=== PATIENT | male | born 2000 | race Caucasian/White ===

== ENCOUNTER 2023-05-14 06:03 | Emergency (ER) | payer MEDICAID, OTHER ==
[~2023-05-14] VITALS: Ht 185.4 cm; Wt 86.4 kg
[2023-05-14 08:00] VITALS: RESP 16; O2SAT 98
[2023-05-14 08:05] VITALS: BP 117/78; PULSE 68; RESP 16; TEMP 98.2; O2SAT 98
== END 2023-05-14 08:10 | disposition home or self-care (01) ==
LOC: EDBD 06:03 → ER 06:03
DX: T59.811A Toxic effect of smoke, accidental (unintentional), initial encounter (principal); Y92.9 Unspecified place or not applicable
CPT/HCPCS: 71045